=== PATIENT | male | born 1955 | race Caucasian/White ===

== ENCOUNTER 2017-10-02 16:16 | Emergency (ER) | payer OTHER ==
[~2017-10-02] VITALS: Ht 182.9 cm; Wt 81.7 kg
[~2017-10-02 16:16] MED LIST: AMOXICILLIN500 M1 PO; ASPIRIN EC81 MG PO; LOSARTAN POTASS50 MG PO; TOPROL XL25 MG PO; VICODIN 5-3001 EACH PO
[2017-10-02] MEDS ORDERED: CHLOROTHIAZIDE250 MG PO (16:28)
== END 2017-10-02 16:45 | disposition home or self-care (01) ==
LOC: ED 16:16
DX: R22.42 Localized swelling, mass and lump, left lower limb (principal); I10 Essential (primary) hypertension; I25.2 Old myocardial infarction; F17.200 Nicotine dependence, unspecified, uncomplicated; Z88.5 Allergy status to narcotic agent; Z79.899 Other long term (current) drug therapy; Z79.82 Long term (current) use of aspirin
CPT/HCPCS: 99281

== ENCOUNTER 2019-09-08 09:21 | Emergency (ER) | payer OTHER ==
[~2019-09-08] VITALS: Ht 182.9 cm; Wt 81.7 kg
[~2019-09-08 09:21] MED LIST changes: +CHLOROTHIAZIDE250 MG PO
[2019-09-08] MEDS ORDERED: NORCO 7.5-3251 EACH PO (10:25)
== END 2019-09-08 10:44 | disposition home or self-care (01) ==
LOC: ED 09:21
DX: S20.212A Contusion of left front wall of thorax, initial encounter (principal); I10 Essential (primary) hypertension; I25.2 Old myocardial infarction; F17.200 Nicotine dependence, unspecified, uncomplicated; X58.XXXA Exposure to other specified factors, initial encounter
CPT/HCPCS: 71046; 99283-25; 99406; A9270

== ENCOUNTER 2020-05-03 17:12 | Emergency (ER) | payer OTHER ==
[~2020-05-03] VITALS: Ht 182.9 cm; Wt 93.0 kg
[~2020-05-03 17:12] MED LIST changes: +NORCO 7.5-3251 EACH PO
[2020-05-03] MEDS ORDERED: PREDNISONE20 MG PO (19:51)
--- NOTE | 2020-05-03 20:47 | EKG ---
[facility] [address] [facility] [place] [address] Signed Normal sinus rhythm Possible Left atrial enlargement Borderline ECG No previous ECGs available Confirmed by ALAINA ALLEN MD ([id number] on 05/03/2020 8:47:27 PM Electronically Signed By: ALAINA ALLEN MD 05/03/20 2047 PATIENT NAME: CYNTHIA ROCHA Electrocardiogram DATE OF : 53 PHYSICIAN: ALAINA ALLEN MD REPORT #: [id number] REPORT IS CONFIDENTIAL AND NOT TO BE RELEASED WITHOUT AUTHORIZATION
== END 2020-05-03 20:05 | disposition home or self-care (01) ==
LOC: ED 17:12
DX: J44.9 Chronic obstructive pulmonary disease, unspecified (principal); I10 Essential (primary) hypertension; I25.2 Old myocardial infarction; F17.200 Nicotine dependence, unspecified, uncomplicated; Z88.5 Allergy status to narcotic agent; Z79.899 Other long term (current) drug therapy
CPT/HCPCS: 71045; 80053; 84484; 85025; 93005; 93010; 99285-25; C9803; J1100; U0003